=== PATIENT | male | born 1955 | race Caucasian/White ===

== ENCOUNTER 2020-04-19 15:26 | Observation (INO) | payer MEDICARE ==
[~2020-04-19 15:26] MED LIST: Iopamidol-370 76% 500 ML 1 ML ONE
--- NOTE | 2020-04-19 18:49 | CT ---
CTA OF THE ABDOMEN, PELVIS AND BILATERAL LOWER EXTREMITY WITH RUNOFF: 04/19/20 COMPARISON: Bilateral lower extremity arterial ultrasound 01/30/20. CTA chest 02/01/20. HISTORY: Bilateral lower extremity ischemic changes. Bilateral lower extremity arterial occlusion. TECHNIQUE: Multiple contiguous axial images were obtained in a CTA of the abdomen, pelvis, and bilateral lower e xtremities for runoff. 3D sagittal and coronal MIP reformats were performed. FINDINGS: There is scarring versus atelectasis in the right lung base. No other acute intrathoracic abnormality is seen. Calcifications are seen in the coronary arteries. The chest wall soft tissues are unremarka ble. There is a hypodense region in the mid portion of the right kidney measuring 4.0 cm in greatest dimen olvin. This has a mean Hounsfield unit value of 35 and is low density compared to the enhancing renal parenchyma. The liver, gallbladder, left kidney, adrenal glands, and pancreas are unremarkable. There is a small hypodensity in the posterior aspect of the spleen measuring less than 5 cm in size. This likely represents a cyst. Previously, there was a large cyst in this location which has decreased in size. The large and small bowel are normal in caliber. The appendix is normal. No abdominal or pelvic lymph adenopathy are seen. Degenerative changes are seen in the spine. Mild diffuse atherosclerotic disease is seen in the abdominal aorta. The celiac trunk, SMA, and RICHARD a re patent without significant atherosclerotic disease at the ostia. There is a single renal artery on each side without significant atherosclerotic disease. The common iliac arteries show minimal diffuse atherosclerotic disease. Severe diffuse atheroscleroti c disease is seen in the internal iliac arteries which may be occluded proximally. The external iliac arteries are patent with minimal diffuse atherosclerotic disease. The bilateral common femoral arteries show mild diffuse atherosclerotic disease with more focal dise ase immediately at their bifurcations. The right profunda femoral artery is heavily calcified and abel ears to be occluded proximally. There is occlusion of the superficial femoral artery on the right at its takeoff. Small collateral vessels are seen in the right thigh surrounding the areas of occlusion extending down to the popliteal artery. The left profunda femoral artery shows moderate to severe di ffuse atherosclerotic disease. The left superficial femoral artery is occluded proximally. Flow is es tablished in the left popliteal artery via profunda collaterals and other collaterals in the left thi gh. Moderate diffuse atherosclerotic disease is seen in both popliteal arteries. Moderate to severe diffu se atherosclerotic disease is seen in all three runoff vessels bilaterally. There appears to be flow down to the ankle in all three vessels on the right. There appears to be occlusion of all three vessels distal to the left knee with a small amount of col lateral flow provided the collaterals along the medial musculature of the lower calf. IMPRESSION: 1. Bilateral superficial femoral artery occlusion. 2. Bilateral profunda femoral artery occlusion. 3. Flow is established to both popliteal arteries which are moderately diseased via collateral v essels. 4. Severe diffuse atherosclerotic disease in the bilateral three vessel runoff. There appears to be three vessel runoff on the right and no vessels are seen as runoff on the left. 5. There is a right renal lesion which is nonspecific and could represent a cyst. However, a cys tic neoplasm is also a possibility. A CT or MRI for renal mass protocol is recommended for better demond racterization. POS: BRYON
[2020-04-19] MEDS ORDERED: Heparin 10,000 UNITS/ 10 ML VIAL ONE (19:09)
[2020-04-19] MEDS ORDERED: Heparin 25,000 units/D5W 500 ML ONE (19:09)
[2020-04-19] MEDS ORDERED: Morphine 4 MG/ML VIAL ONE (19:20)
--- NOTE | 2020-04-19 19:30 | PDOC.HHP ---
Hospitalist HPI - History of Present Illness Left leg pain History of Present Illness: PCP: Yanira Wellington The patient is a 64-year-old male with a past medical history significant for PAD, DVT, HTN, HLD, DM 2, and former crack abuser that presents to the emergency department via EMS as a transfer from [facility] for a concern for femoral arterial occlusions bilaterally. Patient was actually diagnosed with bilateral femoral occlusions 2 months ago at this facility, however, he left AGAINST MEDIC AL ADVICE before any surgical interventions could be performed. The patient takes Xarelto, however, he states he ran out approximately 3 days ago. He says that it "does not work anyways". He reports over the last several days having increased pain from his left knee down to his foot, described as "horrible", intermittent, aggravated with touch, pressure and walking. He denies any recent trauma/injury, no open wounds or lesions, no drainage. Denies any fever or chills. Denies abdominal pain, vomiting or change in bowel habits. He does say that his right lower extremity hurts at times, however, it is nothing compared to the pain in his left lower extremity. Denies any chest pain, heart palpitations, lightheadedness, shortness of breath, hemoptysis. ED Course: VITAL SIGNS FriApr 19, 2020 16:30 CHACE Gongora Morgan BP: 146/88, Pulse: 77, Resp: 16, Pain: 3, O2 sat: 100 on (Room Air), Time: 04/19/2020 16:30. VITAL SIGNS FriApr 19, 2020 16:00 CHACE Gongora Morgan BP: 145/67, Pulse: 79, Resp: 17, Pain: 3, O2 sat: 94 on (Room Air), Time: 04/19/2020 16:00. VITAL SIGNS FriApr 19, 2020 15:35 CHACE Gongora Morgan BP: 134/62, Pulse: 82, Resp: 16, Temp: 98.4 (Oral), Pain: 3, O2 sat: 97 on (Room Air), Time: 04/19/2020 15:35. Medications: heparin (porcine) in 5 % dex 12 units/kg/hr IV Fluid Infusion Ordered 18:35 04/19/2020 heparin (porcine) injection 60 units/kg IV Push Given 19:24 04/19/2020 morphine injection 4 mg IV Push Given 19:22 04/19/2020 Hospitalist ROS - Review of Systems All other systems reviewed; all pertinent +/- noted in HPI/Subj - Medication Medications: metFORMIN TABLET : Strength - 1,000 mg : ORAL Patient Dose: 500 mg Oral 2 times a day. lisinopril TABLET : Strength - 2.5 mg : ORAL Patient Dose: 2.5 mg Oral once a day. lovastatin TABLET : Strength - 10 mg : ORAL Patient Dose: ?? mg Oral once a day.pt unsure of dose. Xarelto 15 mg (42)- 20 mg (9) : Strength - tablets,dose pack : ORAL Patient Dose: Oral. 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 Was half pack per day [id number] habit) Tobacco Type: cigarettes Alcohol: reports: Occassional (Reports 6 ounces whiskey on football game , ) Drugs: reports: Other (Former crack cocaine abuse) Living Situation: Alone Occupation: Does not work Activity level: uses cane/walker - Exam General Appearance: NAD, awake alert. negative: ill appearing Eye: anicteric sclera ENT: normocephalic atraumatic, dry oral mucosa Neck: supple, symmetric Heart: RRR, no murmur, no gallops, no rubs, normal peripheral pulses Respiratory: CTAB, no wheezes, no rales, no ronchi, normal chest expansion, no tachypnea Gastrointestinal: soft, non-tender, non-distended, normal bowel sounds, no bruit, no guarding, no rigidity Extremities: no edema (Bilateral lower extremities, skin dry/flaky, poor hygiene, no open lesions or wounds, full range of motion, weak/faint posterior tibial and pedal pulses to palpation, able to Doppler pedal and posterior tibial pulses, tender to touch left foot, right foot no pain) Skin: no rashes Neurological: no focal deficits Psychiatric: normal affect, A&O x 3 Hospitalist Results - Labs Result Diagrams: 04/19/20 21:18 - Radiology Interpretation Other Status: report reviewed by me Additional Comment: CTA OF THE ABDOMEN, PELVIS AND BILATERAL LOWER EXTREMITY WITH RUNOFF: 04/19/20 IMPRESSION: 1. Bilateral superficial femoral artery occlusion. 2. Bilateral profunda femoral artery occlusion. 3. Flow is established to both popliteal arteries which are moderately diseased via collateral vessels. 4. Severe diffuse atherosclerotic disease in the bilateral three vessel runoff. There appears to be three vessel runoff on the right and no vessels are seen as runoff on the left. 5. There is a right renal lesion which is nonspecific and could represent a cyst. However, a cystic neoplasm is also a possibility. A CT or MRI for renal mass protocol is recommended for better characterization. Hospitalist H&P A/P - Problem (1) Ischemia of left lower extremity Code(s): I99.8 - OTHER DISORDER OF CIRCULATORY SYSTEM Status: Acute (2) Pain of left lower extremity due to ischemia Code(s): M79.605 - PAIN IN LEFT LEG; I99.8 - OTHER DISORDER OF CIRCULATORY SYSTEM Status: Acute (3) Right renal mass Code(s): N28.89 - OTHER SPECIFIED DISORDERS OF KIDNEY AND URETER Status: Acute (4) History of DVT (deep vein thrombosis) Code(s): Z86.718 - PERSONAL HISTORY OF OTHER VENOUS THROMBOSIS AND EMBOLISM Status: Chronic (5) DM2 (diabetes mellitus, type 2) Status: Chronic (6) Hypertension Code(s): I10 - ESSENTIAL (PRIMARY) HYPERTENSION Status: Chronic (7) Hyperlipidemia Code(s): E78.5 - HYPERLIPIDEMIA, UNSPECIFIED Status: Chronic (8) ETOH abuse Code(s): F10.10 - ALCOHOL ABUSE, UNCOMPLICATED Status: Chronic (9) Tobacco abuse Code(s): Z72.0 - TOBACCO USE Status: Chronic - Plan Plan: 64/M with PMH PAD and DVT presents for worsening LLE pain. Admit to telemetry floor, observation status. Expected length of stay less than 2 midnights. Presented vital signs stable. CTA ABD/pelvis with lower extremity runoff: 1. Bilateral superficial femoral artery occlusion. 2. Bilateral profunda femoral artery occlusion. 3. Flow was established to both popliteal arteries via collateral vessels. 4. Severe diffuse atherosclerotic disease in the bilateral 3 vessel runoff. There appears to be three-vessel runoff on the right and no vessels seen as runoff on the left. 5. Right renal lesion, cyst versus cystic neoplasm. #Ischemia of left lower extremity Acute on chronic. CV surgery, Dr. Clemens consulted by ER MD. Continue heparin drip, ischemic stroke protocol (lowest dose) Aspirin daily. N.p.o. Lower extremity positioning, dependent. Analgesia as needed. Vascular checks q4 hours. #Pain of left lower extremity due to ischemia Acute/chronic. #Right renal mass Incidental finding on CT abdomen pelvis. Recommend nonemergent CT or MRI renal mass protocol for better characterization. #History of DVT Takes Xarelto. Reports ran out of Xarelto approximately 3 days ago. #DM2 Chronic, [id number]. Takes metformin at home. We will hold metformin. Start mild ISS. Accu-Cheks every 6 hours. #Hypertension Takes lisinopril at home. We will restart home medication when reconciled by nursing. #Hyperlipidemia Takes lovastatin at home. Restart home dose lovastatin Ranexa by nursing. #EtOH abuse Reports a 6 ounce whiskey on [employer] game days. Drug screen unremarkable Start ASE protocol. #Tobacco abuse Currently 3 to 4 cigarettes/day Had half pack per day [id number] habit. Unwilling to quit. Counseled tobacco cessation. No pharmacological DVT prophylaxis. No SCDs for DVT prophylaxis. Pepcid for GI prophylaxis. Full code. Discussed case with Dr. Levine.
[2020-04-19] MEDS ORDERED: Ondansetron ODT 4 MG TAB PO PRN (20:05)
[2020-04-19] MEDS ORDERED: HYDROcodone/Acetaminophen 5/325 mg Tablet PO PRN ×2 (20:05)
[2020-04-19] MEDS ORDERED: Acetaminophen 325 MG TAB PO PRN (20:05)
[2020-04-19] MEDS ORDERED: Ondansetron PF 4 MG/2 ML Vial IVP PRN (20:05)
[2020-04-19] MEDS ORDERED: HumaLOG 300 UNITS/3 ML VIAL SC PRN (20:18)
[2020-04-19] MEDS ORDERED: Dextrose 5% in Water 1,000 ML IV PRN (20:18)
[2020-04-19] MEDS ORDERED: Dextrose 50% Abboject 50 ML SYRINGE SLOW IVP PRN (20:18)
[2020-04-19] MEDS ORDERED: Heparin 25,000 units/D5W 500 ML IVPB SCH (20:30)
[2020-04-19 21:28] LABS: Hemoglobin 14.3 g/dL (14.0-18.0); Platelet Count 328 thou/uL (130-400)
[2020-04-20] MEDS: Sodium Chloride 0.9% 1,000 ML IV SCH ×3 (00:35→17:53)
[2020-04-20] MEDS: Famotidine 20 MG TAB PO SCH ×2 (00:35→09:22)
[2020-04-20] MEDS: Famotidine/PF 20 mg/2ml Vial SLOW IVP SCH ×2 (00:36→09:47)
[2020-04-20 02:22] VITALS: BMI 23.7
[2020-04-20 03:31] LABS: #Basophils 0.1 thou/uL (0.0-0.2); #Eosinphils 0.1 thou/uL (0.0-0.7); #Lymphocytes 3.3 thou/uL (1.20-3.40); #Monocytes 0.9 thou/uL (0.11-0.59); #Neutrophils 6.8 thou/uL (1.40-6.50); %Basophils 0.9 % (0.0-1.0); %Eosinophils 1.1 % (0.0-10.0); %Lymphocytes 29.4 % (21.0-51.0); %Monocytes 7.6 % (0.0-10.0); Hemoglobin 13.2 g/dL (14.0-18.0); Mean Corpuscular HGB CONC 34.5 g/dL (32.0-36.0); Mean Platelet Volume 8.2 fL (7.4-10.4); Platelet Count 304 thou/uL (130-400); RBC Distribution Width 12.8 % (11.5-14.5); Red Blood Cell (RBC) Count 3.67 mill/uL (4.70-6.10); White Blood Cell (WBC) Count 11.1 thou/uL (4.8-10.8)
[2020-04-20 03:49] LABS: Anion Gap 15 mmol/L (10-20); BUN (Urea Nitrogen) 16 mg/dL (8.4-25.7); Calc. Creatinine Clearance 74 mL/min (70-130); Calcium 8.4 mg/dL (7.8-10.44); Carbon Dioxide 21 mmol/L (23-31); Chloride 104 mmol/L (98-107); Glucose 205 mg/dL (80-115); Potassium 3.8 mmol/L (3.5-5.1); Sodium 136 mmol/L (136-145)
[2020-04-20] MEDS ORDERED: Heparin 10,000 UNITS/ 10 ML VIAL SLOW IVP SCH (05:45)
--- NOTE | 2020-04-20 06:43 | CON ---
DATE OF CONSULTATION: 04/20/2020 HISTORY OF PRESENT ILLNESS: Mr. Guillaume is a 64-year-old gentleman, who presented to the emergency department last night with bilateral leg pain. He was in the emergency department in January of 2020 with similar complaints. At that time, he was found on ultrasound to have bilateral superficial femoral artery severe stenosis/near occlusions. I offered to take him for angiograms the following morning and he declined and left AMA. He re-presented with some more complaints yesterday. He continues to smoke. On my arrival in the room, he is upset when I turn the television off. He is upset because the pump in his room is beeping. He is also upset that he has not been allowed to have anything to eat overnight. His pain at home is really unchanged. This is a chronic issue. He walks but is limited by calf claudication. He has no rest pain. He has no ulcerations on his lower extremities. In the emergency department I ordered a CT angiogram, which shows bilateral superficial femoral artery disease and distal occlusions with reconstitution via collaterals and good runoff into the foot. I spoke with the physicians in the emergency room, told them that as this is a chronic problem that I would be happy to see him as an outpatient. They elected to put him on a heparin drip and have the hospitalist admit him. PAST MEDICAL HISTORY: 1. Diabetes mellitus. 2. Hypertension. 3. Dyslipidemia. 4. Peripheral vascular disease with claudication. PAST SURGICAL HISTORY: None. CURRENT MEDICATIONS: 1. Lisinopril 2.5 mg daily. 2. Metformin 1000 mg b.i.d. 3. Lovastatin 20 mg q.p.m. Note, the patient has a history of DVT in 2016. He was placed on Coumadin anticoagulation at that time and after two months of therapy, elected to stop his Coumadin. He had a repeat ultrasound of his leg in January 2020, which showed chronic DVT. For some reason, he was started back on Xarelto at that time, but he has not continued to take that either. SOCIAL HISTORY: He continues to smoke whenever he is able to get cigarettes. PHYSICAL EXAMINATION: Is limited due to the patient's agitation. VITALS: His temperature is 98.4, pulse is 75 and regular, and blood pressure is 133/68. LUNGS: Have distant coarse breath sounds bilaterally. HEART: Rhythm is regular. ABDOMEN: Soft. EXTREMITIES: He has palpable femoral pulses bilaterally. I cannot palpate pulses in his feet. His right foot is warm. His left foot is cooler than the right, but it is not significantly so. He has less than 2 second capillary refill bilaterally. ASSESSMENT AND PLAN: This is an unfortunate gentleman, who has chronic peripheral vascular disease. I see no indication for him to be on a heparin drip. I see no indication for him to be admitted to the hospital. He is angry that he has been kept n.p.o. all night. If he were to stay, I could potentially do angiograms on him on Friday. In my opinion, he can be discharged and this can be handled as an outpatient. Job ID: [id number]
[2020-04-20] MEDS: HumaLOG 300 UNITS/3 ML VIAL SC PRN ×2 (06:44→12:58)
[2020-04-20] MEDS ORDERED: Aspirin 325 MG TAB PO SCH (09:00)
[2020-04-20] MEDS ORDERED: Lisinopril 2.5 MG TAB PO SCH (09:00)
--- NOTE | 2020-04-20 12:43 | PDOC.DS.DS ---
Provider - Provider Date of Admission: 04/19/20 18:59 Date of Discharge: 04/20/20 Admitting Provider: Hunter Butterfield MD Primary Care Physician: ANI Rico Course - Hospital Course Hospital Course: The patient is a 64-year-old male with past medical history of peripheral vascular disease with chronic lower extremity pain, diabetes mellitus, hypertension, and dyslipidemia who presented to the hospital with complaints of worsening pain in his lower extremities. Patient was started on heparin drip and vascular surgery were consulted. After evaluation, no acute intervention was recommended. Patient was discharged and was told to follow-up outpatient. Resuscitation Status: 04/19/20 20:05 Resuscitation Status Routine Co-Sign Provider: Resuscitation Status: FULL: Full Resuscitation Discussed with: patient - Labs Lab Results: 04/20/20 03:23 04/20/20 03:23 Abnormal Lab Results - Last 48 hrs 04/19/20 21:18: Hct 41.5 L 04/19/20 21:18: APTT 69.2 H 04/20/20 03:23: Carbon Dioxide 21 L 04/20/20 03:23: WBC 11.1 H, RBC 3.67 L, Hgb 13.2 L, Hct 38.2 L, MCV 104.0 H, MCH 36.0 H, Neutrophils # 6.8 H, Monocytes # 0.9 H 04/20/20 03:23: APTT 55.4 H 04/20/20 12:07: APTT 50.9 H - Physical Exam Vitals: Vital Signs (12 hours) Temp Pulse Resp BP BP BP Pulse Ox 04/20/20 12:00 73 27 H 137/68 99 04/20/20 09:54 148/70 H 04/20/20 09:21 74 132/65 04/20/20 07:44 97.7 F 74 15 132/65 97 04/20/20 03:26 98.4 F 75 22 H 133/68 98 04/20/20 01:33 99 Weight Weight 170 lb 4.8 oz Physical Exam: The patient was seen and examined on the day of discharge. Problem - Problem (1) Ischemia of left lower extremity Code(s): I99.8 - OTHER DISORDER OF CIRCULATORY SYSTEM Status: Acute (2) DM2 (diabetes mellitus, type 2) Status: Chronic (3) Hyperlipidemia Code(s): E78.5 - HYPERLIPIDEMIA, UNSPECIFIED Status: Chronic (4) Hypertension Code(s): I10 - ESSENTIAL (PRIMARY) HYPERTENSION Status: Chronic - Time spent with Patient (mins): 31 Plan - Discharge Medications Prescriptions: Aspirin [Aspirin EC] 81 mg PO DAILY #30 tablet. Apixaban [Eliquis] 5 mg PO BID #60 tablet Home Medications: Medication Instructions Recorded Confirmed Type Apixaban [Eliquis] 5 mg PO BID #60 tablet 04/20/20 Rx Aspirin [Aspirin EC] 81 mg PO DAILY #30 tablet. 04/20/20 Rx Lisinopril [Zestril] 2.5 mg PO DAILY 04/20/20 04/20/20 History Lovastatin 20 mg PO QPM-WM 04/20/20 04/20/20 History metFORMIN HCl [Metformin HCl] 1,000 mg PO BID 04/20/20 04/20/20 History Allergies: latex Allergy (Verified 11/21/13 02:13) poison yara extract [Poison Yara Extract] Allergy (Verified 11/21/13 02:13) - Follow up Plan Referrals: Yanira Wellington PA [Primary Care Provider] - Disposition: HOME Quality - Care Measures CORE MEASURES:: N/A
[2020-04-20 12:55] LABS: SARS-CoV-2 MS2 Positive; SARS-CoV-2 N Gene Negative; SARS-CoV-2 S Gene Negative; SARS-CoV-2 by NAA Not Detected (NotDetected); SARS-CoV-2 orf1ab Negative
[2020-04-20 16:58] VITALS: BP 130/67; TEMP 98.5
[2020-04-20] MEDS ORDERED: Simvastatin 10 MG TAB PO SCH (21:00)
--- NOTE | 2020-04-22 11:25 | EKG ---
Test Reason : Blood Pressure : / mmHG Vent. Rate : 083 BPM Atrial Rate : 083 BPM P-R Int : 168 ms QRS Dur : 088 ms QT Int : 362 ms P-R-T Axes : 065 069 059 degrees QTc Int : 425 ms Sinus rhythm with occasional Premature ventricular complexes Otherwise normal ECG Confirmed by ASHER PALUMBO ([id number]), mapping editor ISAIAH QUICK ([id number]) on 04/22/2020 11:25:06 AM Referred By: Confirmed By:ASHER PALUMBO
== END 2020-04-20 17:52 | disposition home or self-care (01) ==
LOC: ERS 15:26 → 2NO 18:59
PROVIDERS: ADMIT Internal Medicine; ATTEND Internal Medicine
DX: E11.51 Type 2 diabetes mellitus with diabetic peripheral angiopathy without gangrene (principal); I70.213 Atherosclerosis of native arteries of extremities with intermittent claudication, bilateral legs; N28.89 Other specified disorders of kidney and ureter; I10 Essential (primary) hypertension; E78.5 Hyperlipidemia, unspecified; F10.10 Alcohol abuse, uncomplicated; F17.210 Nicotine dependence, cigarettes, uncomplicated; F14.11 Cocaine abuse, in remission; F32.9 Major depressive disorder, single episode, unspecified; Z86.718 Personal history of other venous thrombosis and embolism; Z86.73 Personal history of transient ischemic attack (TIA), and cerebral infarction without residual deficits; Z79.01 Long term (current) use of anticoagulants; Z79.84 Long term (current) use of oral hypoglycemic drugs; Z79.899 Other long term (current) drug therapy; Z88.8 Allergy status to other drugs, medicaments and biological substances; Z91.040 Latex allergy status; Z20.828 Contact with and (suspected) exposure to other viral communicable diseases
CPT/HCPCS: 75635; 80048; 82962 ×2; 85014; 85018; 85025; 85049; 85730 ×3; 93005; 96365; 96366; 96375; 97139; 99285; U0003; 36415; 36416; 87635; G0378; J1644; J2270; Q9967; S0028

== ENCOUNTER 2020-07-25 20:12 | Inpatient (IN) | payer MEDICARE ==
[2020-07-25 20:57] LABS: #Basophils 0.1 thou/uL (0.0-0.2); #Eosinphils 0.1 thou/uL (0.0-0.7); #Lymphocytes 2.5 thou/uL (1.20-3.40); #Monocytes 0.9 thou/uL (0.11-0.59); #Neutrophils 6.6 thou/uL (1.40-6.50); %Basophils 0.7 % (0.0-1.0); %Eosinophils 0.9 % (0.0-10.0); %Lymphocytes 24.6 % (21.0-51.0); %Monocytes 8.8 % (0.0-10.0); %Neutrophils 65.1 % (42.0-75.0); Hemoglobin 14.7 g/dL (14.0-18.0); Mean Corpuscular HGB CONC 35.4 g/dL (32.0-36.0); Mean Corpuscular Hemoglobin 35.6 pg (27.0-31.0); Mean Platelet Volume 8.3 fL (7.4-10.4); Platelet Count 388 thou/uL (130-400); RBC Distribution Width 12.1 % (11.5-14.5); Red Blood Cell (RBC) Count 4.13 mill/uL (4.70-6.10); White Blood Cell (WBC) Count 10.1 thou/uL (4.8-10.8)
[2020-07-25] MEDS ORDERED: Cefepime 2 GM VIAL ONE (21:06)
[2020-07-25 21:22] LABS: ALT (SGPT) 10 U/L (8-55); AST (SGOT) 10 U/L (5-34); Albumin 3.8 g/dL (3.4-4.8); Alcohol Less than 10 mg/dL (Less than 10); Alkaline Phosphatase 101 U/L (40-110); Anion Gap 22 mmol/L (10-20); BUN (Urea Nitrogen) 23 mg/dL (8.4-25.7); Bilirubin, Total 0.5 mg/dL (0.2-1.2); Calc. Creatinine Clearance 0 mL/min (70-130); Calcium 9.3 mg/dL (7.8-10.44); Carbon Dioxide 22 mmol/L (23-31); Chloride 98 mmol/L (98-107); Globulin 4.4 g/dL (2.4-3.5); Glucose 369 mg/dL (80-115); Potassium 4.5 mmol/L (3.5-5.1); Protein, Total 8.2 g/dL (5.8-8.1); Sodium 137 mmol/L (136-145)
[2020-07-25] MEDS ORDERED: Vancomycin 1.5 GRAM/300 ML BAG 1.5 GM in Premix Bag 1 BAG IVPB SCH (21:30)
[2020-07-25] MEDS ORDERED: Morphine 4 MG/ML VIAL ONE (22:48)
[2020-07-25] MEDS ORDERED: Lactated Ringer's 1,000 ML IV SCH (23:45)
[2020-07-26 00:04] LABS: Lactic Acid 2.5 mmol/L (0.5-2.2)
[2020-07-26 00:18] VITALS: BMI 23.6
[2020-07-26] MEDS ORDERED: Ondansetron PF 4 MG/2 ML Vial IVP PRN (05:18)
[2020-07-26] MEDS ORDERED: hydrALAZINE 20 MG/ML VIAL SLOW IVP PRN (05:21)
[2020-07-26] MEDS ORDERED: Lactated Ringer's 1,000 ML IV SCH (05:27)
[2020-07-26 06:12] LABS: #Basophils 0.1 thou/uL (0.0-0.2); #Eosinphils 0.2 thou/uL (0.0-0.7); #Lymphocytes 2.8 thou/uL (1.20-3.40); #Monocytes 0.9 thou/uL (0.11-0.59); #Neutrophils 5.9 thou/uL (1.40-6.50); %Basophils 0.5 % (0.0-1.0); %Eosinophils 2.1 % (0.0-10.0); %Lymphocytes 28.3 % (21.0-51.0); %Monocytes 8.7 % (0.0-10.0); %Neutrophils 60.3 % (42.0-75.0); Hemoglobin 12.8 g/dL (14.0-18.0); Mean Corpuscular HGB CONC 33.3 g/dL (32.0-36.0); Mean Corpuscular Hemoglobin 33.7 pg (27.0-31.0); Mean Platelet Volume 8.3 fL (7.4-10.4); Platelet Count 360 thou/uL (130-400); RBC Distribution Width 11.8 % (11.5-14.5); Red Blood Cell (RBC) Count 3.79 mill/uL (4.70-6.10); White Blood Cell (WBC) Count 9.8 thou/uL (4.8-10.8)
[2020-07-26 06:32] LABS: Anion Gap 14 mmol/L (10-20); BUN (Urea Nitrogen) 22 mg/dL (8.4-25.7); Calc. Creatinine Clearance 59 mL/min (70-130); Calcium 8.7 mg/dL (7.8-10.44); Carbon Dioxide 26 mmol/L (23-31); Chloride 104 mmol/L (98-107); Glucose 314 mg/dL (80-115); Potassium 4.7 mmol/L (3.5-5.1); Sodium 139 mmol/L (136-145)
[2020-07-26 06:47] LABS: SARS-CoV-2 PCR by NAA Not Detected (NotDetected)
[2020-07-26] MEDS ORDERED: FLU VACC QS2020-21(6MOS UP)/PF 60 MCG/0.5 ML SYRINGE IM ONE (09:00)
[2020-07-26] MEDS: Cefepime 1 GM in Sodium Chloride 0.9% 100 ML IVPB SCH ×2 (09:38→20:00)
[2020-07-26] MEDS: Multivitamins, Adult 10 ML, Folic Acid 1 MG, Thiamine HCl 100 MG in Dextrose 5 %-0.45 %... IV SCH (11:21)
[2020-07-26] MEDS ORDERED: Dextrose 5% in Water 1,000 ML IV PRN (18:47)
[2020-07-26] MEDS ORDERED: HumaLOG 300 UNITS/3 ML VIAL SC PRN (18:47)
[2020-07-26] MEDS ORDERED: Dextrose 50% Abboject 50 ML SYRINGE SLOW IVP PRN (18:47)
[2020-07-26] MEDS ORDERED: Vancomycin 1.5 GRAM/300 ML BAG 1.5 GM in Premix Bag 1 BAG IVPB SCH (22:00)
[2020-07-27] MEDS: Sodium Chloride 0.9% 1,000 ML IV SCH ×2 (00:05→16:57)
[2020-07-27] MEDS: HumaLOG 300 UNITS/3 ML VIAL SC PRN ×2 (05:15→16:54)
[2020-07-27 05:41] LABS: #Basophils 0.1 thou/uL (0.0-0.2); #Eosinphils 0.2 thou/uL (0.0-0.7); #Lymphocytes 2.2 thou/uL (1.20-3.40); #Monocytes 0.8 thou/uL (0.11-0.59); %Basophils 0.6 % (0.0-1.0); %Eosinophils 2.4 % (0.0-10.0); %Lymphocytes 21.4 % (21.0-51.0); %Monocytes 7.8 % (0.0-10.0); %Neutrophils 67.8 % (42.0-75.0); Hemoglobin 12.6 g/dL (14.0-18.0); Mean Corpuscular HGB CONC 33.5 g/dL (32.0-36.0); Mean Corpuscular Hemoglobin 33.9 pg (27.0-31.0); Mean Platelet Volume 8.4 fL (7.4-10.4); Platelet Count 320 thou/uL (130-400); RBC Distribution Width 11.8 % (11.5-14.5); Red Blood Cell (RBC) Count 3.71 mill/uL (4.70-6.10); White Blood Cell (WBC) Count 10.3 thou/uL (4.8-10.8)
[2020-07-27 05:47] LABS: Anion Gap 12 mmol/L (10-20); BUN (Urea Nitrogen) 15 mg/dL (8.4-25.7); Calc. Creatinine Clearance 77 mL/min (70-130); Calcium 8.4 mg/dL (7.8-10.44); Carbon Dioxide 23 mmol/L (23-31); Chloride 104 mmol/L (98-107); Glucose 202 mg/dL (80-115); Potassium 4.4 mmol/L (3.5-5.1); Sodium 135 mmol/L (136-145)
[2020-07-27] MEDS: Acetaminophen 325 MG TAB PO PRN ×2 (05:50→17:37)
[2020-07-27] MEDS: Multivitamins, Adult 10 ML, Folic Acid 1 MG, Thiamine HCl 100 MG in Dextrose 5 %-0.45 %... IV SCH (08:54)
[2020-07-27] MEDS ORDERED: Lidocaine 1% (PF) 30 ML VIAL ONE (10:02)
[2020-07-27] MEDS ORDERED: Heparin 10,000 UNITS/ 10 ML VIAL ONE (10:02)
[2020-07-27] MEDS ORDERED: Midazolam HCl 2 mg/2 ml Vial ONE (10:39)
[2020-07-27] MEDS ORDERED: Fentanyl 100 MCG/2 ML VIAL ONE (10:39)
[2020-07-27] MEDS ORDERED: Iopamidol 370 76% 50 ML VIAL FS ONE (11:55)
[2020-07-28 05:45] LABS: #Eosinphils 0.1 thou/uL (0.0-0.7); #Lymphocytes 1.7 thou/uL (1.20-3.40); #Monocytes 0.8 thou/uL (0.11-0.59); #Neutrophils 7.8 thou/uL (1.40-6.50); %Basophils 0.5 % (0.0-1.0); %Eosinophils 1.3 % (0.0-10.0); %Lymphocytes 16.4 % (21.0-51.0); %Monocytes 7.6 % (0.0-10.0); %Neutrophils 74.3 % (42.0-75.0); Hemoglobin 12.6 g/dL (14.0-18.0); Mean Corpuscular HGB CONC 34.5 g/dL (32.0-36.0); Mean Corpuscular Hemoglobin 34.6 pg (27.0-31.0); Platelet Count 327 thou/uL (130-400); RBC Distribution Width 11.8 % (11.5-14.5); Red Blood Cell (RBC) Count 3.65 mill/uL (4.70-6.10); White Blood Cell (WBC) Count 10.5 thou/uL (4.8-10.8)
[2020-07-28] MEDS: Sodium Chloride 0.9% 1,000 ML IV SCH (06:01)
[2020-07-28 06:07] LABS: Anion Gap 14 mmol/L (10-20); BUN (Urea Nitrogen) 12 mg/dL (8.4-25.7); Calc. Creatinine Clearance 77 mL/min (70-130); Calcium 8.5 mg/dL (7.8-10.44); Carbon Dioxide 23 mmol/L (23-31); Chloride 103 mmol/L (98-107); Glucose 265 mg/dL (80-115); Potassium 4.4 mmol/L (3.5-5.1); Sodium 136 mmol/L (136-145)
[2020-07-28] MEDS ORDERED: Heparin 5,000 UNITS/ML VIAL ONE (06:37)
[2020-07-28] MEDS ORDERED: Protamine Sulfate 50 MG/5 ML VIAL ONE (06:37)
[2020-07-28] MEDS ORDERED: Fentanyl 100 MCG/2 ML VIAL ONE ×3 (06:43→10:28)
[2020-07-28] MEDS ORDERED: Midazolam HCl 2 mg/2 ml Vial ONE (06:43)
[2020-07-28] MEDS ORDERED: Dexamethasone 20 MG/5 ML VIAL ONE (09:06)
[2020-07-28] MEDS ORDERED: Ondansetron PF 4 MG/2 ML Vial ONE (09:06)
[2020-07-28] MEDS ORDERED: PROPOFOL 200 MG/20 ML VIAL ONE (09:06)
[2020-07-28] MEDS ORDERED: Calcium Chloride 1 GM/10 ML Abboject SYRINGE ONE (09:06)
[2020-07-28] MEDS ORDERED: PHENYLEPHRINE-NS 100 MCG/ML 10 ML SYRINGE ONE (09:06)
[2020-07-28] MEDS ORDERED: ePHEDrine 50 MG/ML VIAL ONE (09:06)
[2020-07-28] MEDS ORDERED: Labetalol HCl 100 MG/20 ML VIAL ONE (09:43)
[2020-07-28] MEDS ORDERED: Labetalol HCl 100 MG/20 ML VIAL SLOW IVP SCH (09:45)
[2020-07-28] MEDS ORDERED: traMADol HCl 50 MG TAB PO PRN (12:49)
[2020-07-28] MEDS ORDERED: Fentanyl 100 MCG/2 ML VIAL SLOW IVP PRN ×2 (12:49)
[2020-07-28] MEDS: Multivitamins, Adult 10 ML, Folic Acid 1 MG, Thiamine HCl 100 MG in Dextrose 5 %-0.45 %... IV SCH (14:36)
[2020-07-28] MEDS: traMADol HCl 50 MG TAB PO PRN (15:05)
[2020-07-28 15:41] LABS: Bacteria/HPF None Seen HPF (None Seen); Bilirubin Negative (Negative); Blood, Urine Trace (Negative); Clarity Clear (Clear); Glucose, Urine (Dipstick) Greater than 1000 mg/dL (Negative); Ketone, Urine Trace mg/dL (Negative); Leukocyte Negative Leu/uL (Negative); Nitrite Negative (Negative); Protein, Urine (Dipstick) Negative (Neg-Trace); RBC/HPF 0-3 HPF (0-3); Specific Gravity, Urine 1.017 (1.002-1.036); Squamous Epithelial None Seen HPF (0-3); Urobilinogen Normal mg/dL (Less than 2); pH, Urine 5.5 (5.0-9.0)
[2020-07-28 15:58] LABS: Sperm/HPF 3+ HPF (None Seen)
[2020-07-28 16:00] LABS: Urine Culture Reflex Yes Yes
[2020-07-28] MEDS: HumaLOG 300 UNITS/3 ML VIAL SC PRN ×2 (16:23→20:51)
[2020-07-28] MEDS: metFORMIN 500 MG TAB PO SCH (17:52)
[2020-07-28] MEDS ORDERED: HumaLOG 300 UNITS/3 ML VIAL SC SCH (19:00)
[2020-07-28] MEDS: Simvastatin 10 MG TAB PO SCH (20:35)
[2020-07-29] MEDS: HumaLOG 300 UNITS/3 ML VIAL SC PRN ×2 (05:46→12:19)
[2020-07-29 05:47] LABS: #Lymphocytes 1.8 thou/uL (1.20-3.40); #Monocytes 0.9 thou/uL (0.11-0.59); #Neutrophils 9.5 thou/uL (1.40-6.50); %Basophils 0.2 % (0.0-1.0); %Eosinophils 0.2 % (0.0-10.0); %Lymphocytes 14.5 % (21.0-51.0); %Monocytes 7.2 % (0.0-10.0); %Neutrophils 77.9 % (42.0-75.0); Mean Corpuscular HGB CONC 34.1 g/dL (32.0-36.0); Mean Corpuscular Hemoglobin 34.2 pg (27.0-31.0); Mean Platelet Volume 8.2 fL (7.4-10.4); Platelet Count 310 thou/uL (130-400); RBC Distribution Width 11.9 % (11.5-14.5); Red Blood Cell (RBC) Count 3.51 mill/uL (4.70-6.10); White Blood Cell (WBC) Count 12.2 thou/uL (4.8-10.8)
[2020-07-29 06:11] LABS: Anion Gap 16 mmol/L (10-20); BUN (Urea Nitrogen) 17 mg/dL (8.4-25.7); Calc. Creatinine Clearance 77 mL/min (70-130); Calcium 8.7 mg/dL (7.8-10.44); Carbon Dioxide 21 mmol/L (23-31); Chloride 102 mmol/L (98-107); Glucose 261 mg/dL (80-115); Sodium 135 mmol/L (136-145)
[2020-07-29] MEDS: Sodium Chloride 0.9% 1,000 ML IV SCH ×2 (08:09→08:10)
[2020-07-29] MEDS: Aspirin 325 mg Enteric Coated Tablet PO SCH (08:10)
[2020-07-29] MEDS: traMADol HCl 50 MG TAB PO PRN (08:10)
[2020-07-29] MEDS: metFORMIN 500 MG TAB PO SCH ×2 (08:11→16:54)
[2020-07-29] MEDS: Acetaminophen 325 MG TAB PO PRN (08:11)
[2020-07-29] MEDS: Multivitamins, Adult 10 ML, Folic Acid 1 MG, Thiamine HCl 100 MG in Dextrose 5 %-0.45 %... IV SCH (10:28)
[2020-07-29] MEDS: Senokot S 8.6-50 MG TAB PO SCH ×2 (20:15→21:06)
[2020-07-29] MEDS: Sulfameth/Trimethoprim DS 800-160mg TAB PO SCH (20:15)
[2020-07-29] MEDS: Insulin Glargine 10 UNITS in Pre-Filled Syringe 1 EACH SC SCH (20:16)
[2020-07-29] MEDS: Simvastatin 10 MG TAB PO SCH (20:43)
[2020-07-30] MEDS: Acetaminophen 325 MG TAB PO PRN ×2 (05:53→20:41)
[2020-07-30] MEDS: HumaLOG 300 UNITS/3 ML VIAL SC PRN (05:54)
[2020-07-30] MEDS: traMADol HCl 50 MG TAB PO PRN ×2 (07:06→16:44)
[2020-07-30] MEDS: Multivit, Therapeutic 1 TAB PO SCH (08:17)
[2020-07-30] MEDS: Senokot S 8.6-50 MG TAB PO SCH ×3 (08:18→20:40)
[2020-07-30] MEDS: metFORMIN 500 MG TAB PO SCH ×2 (08:18→16:44)
[2020-07-30] MEDS: Thiamine 100 MG TAB PO SCH (08:18)
[2020-07-30] MEDS: Sulfameth/Trimethoprim DS 800-160mg TAB PO SCH ×2 (08:18→20:41)
[2020-07-30] MEDS: Aspirin 325 mg Enteric Coated Tablet PO SCH (08:18)
[2020-07-30] MEDS: Folic Acid 1 MG TAB PO SCH (08:18)
[2020-07-30] MEDS ORDERED: HumaLOG 300 UNITS/3 ML VIAL SC PRN (16:04)
[2020-07-30] MEDS: Simvastatin 10 MG TAB PO SCH (20:41)
[2020-07-30] MEDS: Amlodipine 5 MG TAB PO SCH (20:41)
[2020-07-30] MEDS: Insulin Glargine 10 UNITS in Pre-Filled Syringe 1 EACH SC SCH (20:41)
[2020-07-31] MEDS: traMADol HCl 50 MG TAB PO PRN ×2 (04:04→20:51)
[2020-07-31] MEDS: metFORMIN 500 MG TAB PO SCH ×2 (08:19→16:14)
[2020-07-31] MEDS: Aspirin 325 mg Enteric Coated Tablet PO SCH (08:19)
[2020-07-31] MEDS: Multivit, Therapeutic 1 TAB PO SCH (08:19)
[2020-07-31] MEDS: Sulfameth/Trimethoprim DS 800-160mg TAB PO SCH ×2 (08:19→20:50)
[2020-07-31] MEDS: Thiamine 100 MG TAB PO SCH (08:20)
[2020-07-31] MEDS: Senokot S 8.6-50 MG TAB PO SCH ×2 (08:20→23:03)
[2020-07-31] MEDS: Folic Acid 1 MG TAB PO SCH (08:20)
[2020-07-31] MEDS: Amlodipine 5 MG TAB PO SCH (20:50)
[2020-07-31] MEDS: Simvastatin 10 MG TAB PO SCH (20:51)
[2020-07-31] MEDS: Insulin Glargine 10 UNITS in Pre-Filled Syringe 1 EACH SC SCH (23:03)
[2020-08-01] MEDS: Thiamine 100 MG TAB PO SCH (08:09)
[2020-08-01] MEDS: Aspirin 325 mg Enteric Coated Tablet PO SCH (08:09)
[2020-08-01] MEDS: Senokot S 8.6-50 MG TAB PO SCH ×2 (08:09→21:12)
[2020-08-01] MEDS: Multivit, Therapeutic 1 TAB PO SCH (08:09)
[2020-08-01] MEDS: Folic Acid 1 MG TAB PO SCH (08:09)
[2020-08-01] MEDS: Sulfameth/Trimethoprim DS 800-160mg TAB PO SCH ×2 (08:09→21:11)
[2020-08-01] MEDS: metFORMIN 500 MG TAB PO SCH ×2 (08:09→17:25)
[2020-08-01] MEDS: traMADol HCl 50 MG TAB PO PRN (17:29)
[2020-08-01] MEDS: Amlodipine 5 MG TAB PO SCH (21:11)
[2020-08-01] MEDS: Simvastatin 10 MG TAB PO SCH (21:11)
[2020-08-01] MEDS: Insulin Glargine 10 UNITS in Pre-Filled Syringe 1 EACH SC SCH (21:12)
[2020-08-02] MEDS: Folic Acid 1 MG TAB PO SCH (08:01)
[2020-08-02] MEDS: Aspirin 325 mg Enteric Coated Tablet PO SCH (08:01)
[2020-08-02] MEDS: Senokot S 8.6-50 MG TAB PO SCH ×2 (08:01→20:25)
[2020-08-02] MEDS: Multivit, Therapeutic 1 TAB PO SCH (08:01)
[2020-08-02] MEDS: Sulfameth/Trimethoprim DS 800-160mg TAB PO SCH ×2 (08:01→20:25)
[2020-08-02] MEDS: Thiamine 100 MG TAB PO SCH (08:01)
[2020-08-02] MEDS: metFORMIN 500 MG TAB PO SCH ×2 (08:01→17:36)
[2020-08-02] MEDS: traMADol HCl 50 MG TAB PO PRN (16:26)
[2020-08-02] MEDS: Amlodipine 5 MG TAB PO SCH (20:25)
[2020-08-02] MEDS ORDERED: Lantus 1000 UNITS/10 ML VIAL SC SCH (21:00)
[2020-08-02] MEDS: Acetaminophen 325 MG TAB PO PRN (22:25)
[2020-08-02] MEDS: Simvastatin 10 MG TAB PO SCH (22:26)
[2020-08-03] MEDS: Acetaminophen 325 MG TAB PO PRN (03:52)
[2020-08-03 05:35] LABS: #Basophils 0.1 thou/uL (0.0-0.2); #Eosinphils 0.4 thou/uL (0.0-0.7); #Lymphocytes 1.9 thou/uL (1.20-3.40); #Monocytes 0.9 thou/uL (0.11-0.59); #Neutrophils 6.2 thou/uL (1.40-6.50); %Basophils 0.9 % (0.0-1.0); %Eosinophils 4.6 % (0.0-10.0); %Lymphocytes 19.9 % (21.0-51.0); %Monocytes 9.7 % (0.0-10.0); %Neutrophils 64.9 % (42.0-75.0); Hemoglobin 13.4 g/dL (14.0-18.0); Mean Corpuscular Hemoglobin 32.3 pg (27.0-31.0); Mean Platelet Volume 8.2 fL (7.4-10.4); Platelet Count 358 thou/uL (130-400); RBC Distribution Width 12.2 % (11.5-14.5); Red Blood Cell (RBC) Count 4.15 mill/uL (4.70-6.10); White Blood Cell (WBC) Count 9.5 thou/uL (4.8-10.8)
[2020-08-03 06:03] LABS: Anion Gap 15 mmol/L (10-20); BUN (Urea Nitrogen) 18 mg/dL (8.4-25.7); Calc. Creatinine Clearance 65 mL/min (70-130); Calcium 9.5 mg/dL (7.8-10.44); Carbon Dioxide 23 mmol/L (23-31); Chloride 101 mmol/L (98-107); Glucose 128 mg/dL (80-115); Potassium 4.3 mmol/L (3.5-5.1); Sodium 135 mmol/L (136-145)
[2020-08-03] MEDS: traMADol HCl 50 MG TAB PO PRN (08:40)
[2020-08-03] MEDS: metFORMIN 500 MG TAB PO SCH (08:40)
[2020-08-03] MEDS: Aspirin 325 mg Enteric Coated Tablet PO SCH (09:03)
[2020-08-03] MEDS: Sulfameth/Trimethoprim DS 800-160mg TAB PO SCH (09:03)
[2020-08-03] MEDS: Senokot S 8.6-50 MG TAB PO SCH (09:03)
[2020-08-03] MEDS: Folic Acid 1 MG TAB PO SCH (09:03)
[2020-08-03] MEDS: Thiamine 100 MG TAB PO SCH (09:03)
[2020-08-03] MEDS: Multivit, Therapeutic 1 TAB PO SCH (09:03)
[2020-08-03 11:17] VITALS: BP 144/76; TEMP 97.7
== END 2020-08-03 16:02 | disposition home or self-care (01) | DRG 854 ==
LOC: ERS 20:12 → ONC 22:40 → CCU 07-28 08:17 → SJJU 07-28 12:27
PROVIDERS: ADMIT Internal Medicine; ATTEND Hospitalist
PROC: B41D1ZZ Fluoroscopy of Aorta and Bilateral Lower Extremity Arteries using Low Osmolar Contrast (ICD-10-PCS; 2020-07-27)
PROC: 061N0JY Bypass Left Femoral Vein to Lower Vein with Synthetic Substitute, Open Approach (ICD-10-PCS; principal; 2020-07-28)
DX: A41.9 Sepsis, unspecified organism (principal); E11.52 Type 2 diabetes mellitus with diabetic peripheral angiopathy with gangrene; I70.262 Atherosclerosis of native arteries of extremities with gangrene, left leg; N17.9 Acute kidney failure, unspecified; R65.20 Severe sepsis without septic shock; Z20.822 Contact with and (suspected) exposure to COVID-19; F10.10 Alcohol abuse, uncomplicated; F17.210 Nicotine dependence, cigarettes, uncomplicated; E11.65 Type 2 diabetes mellitus with hyperglycemia; E11.22 Type 2 diabetes mellitus with diabetic chronic kidney disease; N18.2 Chronic kidney disease, stage 2 (mild); I12.9 Hypertensive chronic kidney disease with stage 1 through stage 4 chronic kidney disease, or unspecified chronic kidney disease; E78.5 Hyperlipidemia, unspecified; Z28.21 Immunization not carried out because of patient refusal; Z91.19 Patient's noncompliance with other medical treatment and regimen; Z86.718 Personal history of other venous thrombosis and embolism; Z86.73 Personal history of transient ischemic attack (TIA), and cerebral infarction without residual deficits; Z91.040 Latex allergy status; Z91.09 Other allergy status, other than to drugs and biological substances; Z79.899 Other long term (current) drug therapy; Z79.01 Long term (current) use of anticoagulants; Z79.84 Long term (current) use of oral hypoglycemic drugs; Z83.3 Family history of diabetes mellitus
CPT/HCPCS: 36247; 36415; 36416; 75630; 75710; 76942; 80048; 80053; 80307; 81001; 82550; 83605; 85025; 86140; 87040; 87086; 87635; 93923; 96365; 96366; 96375; 99152; 99153; J0690; J0692; J1100; J1642; J1644; J1815; J2001; J2250; J2270; J2405; J2704; J2720; J3010; J3370; J3411; J3490; J7042; Q9967; U0003; U0005

== ENCOUNTER 2020-09-04 17:43 | Emergency (ER) | payer MEDICARE | END 2020-09-04 19:15 | disposition home or self-care (01) | LOC: ERS 17:43 | DX: M79.652 Pain in left thigh (principal); I10 Essential (primary) hypertension; E11.9 Type 2 diabetes mellitus without complications; F17.210 Nicotine dependence, cigarettes, uncomplicated; Z86.73 Personal history of transient ischemic attack (TIA), and cerebral infarction without residual deficits; Z86.718 Personal history of other venous thrombosis and embolism; Z79.899 Other long term (current) drug therapy; Z79.84 Long term (current) use of oral hypoglycemic drugs | CPT/HCPCS: 99281 ==

== ENCOUNTER 2020-10-26 11:16 | Inpatient (IN) | payer MEDICARE ==
[2020-10-26 12:11] LABS: #Lymphocytes 1.1 thou/uL (1.20-3.40); #Monocytes 0.7 thou/uL (0.11-0.59); #Neutrophils 6.4 thou/uL (1.40-6.50); %Basophils 0.2 % (0.0-1.0); %Eosinophils 0.5 % (0.0-10.0); %Lymphocytes 12.8 % (21.0-51.0); %Monocytes 8.7 % (0.0-10.0); %Neutrophils 77.8 % (42.0-75.0); Hemoglobin 12.9 g/dL (14.0-18.0); Mean Corpuscular HGB CONC 33.3 g/dL (32.0-36.0); Mean Platelet Volume 7.9 fL (7.4-10.4); Platelet Count 277 thou/uL (130-400); RBC Distribution Width 12.9 % (11.5-14.5); Red Blood Cell (RBC) Count 4.02 mill/uL (4.70-6.10); White Blood Cell (WBC) Count 8.2 thou/uL (4.8-10.8)
[2020-10-26] MEDS ORDERED: Piperacillin/Tazobactam 3.375 GM VIAL ONE (12:12)
[2020-10-26] MEDS ORDERED: Morphine 4 MG/ML VIAL ONE (12:12)
[2020-10-26 12:27] LABS: INR-International Normal Ratio 1.6; Prothrombin Time 19.8 sec (12.0-14.7)
[2020-10-26 12:28] LABS: PTT 38.8 sec (22.9-36.1)
[2020-10-26 12:35] LABS: ALT (SGPT) 13 U/L (8-55); AST (SGOT) 19 U/L (5-34); Albumin 3.6 g/dL (3.4-4.8); Alkaline Phosphatase 109 U/L (40-110); Anion Gap 15 mmol/L (10-20); BUN (Urea Nitrogen) 14 mg/dL (8.4-25.7); Bilirubin, Total 0.8 mg/dL (0.2-1.2); Calc. Creatinine Clearance 0 mL/min (70-130); Calcium 8.8 mg/dL (7.8-10.44); Carbon Dioxide 23 mmol/L (23-31); Chloride 99 mmol/L (98-107); Globulin 3.9 g/dL (2.4-3.5); Glucose 164 mg/dL (80-115); Lipase 12 U/L (8-78); Potassium 4.1 mmol/L (3.5-5.1); Protein, Total 7.5 g/dL (5.8-8.1); Sodium 133 mmol/L (136-145)
[2020-10-26] MEDS ORDERED: Midazolam HCl 2 mg/2 ml Vial ONE (14:21)
[2020-10-26 14:46] LABS: Bilirubin Negative (Negative); Blood, Urine Trace (Negative); Glucose, Urine (Dipstick) 100 mg/dL (Negative); Ketone, Urine Trace mg/dL (Negative); Leukocyte Negative (Negative); Nitrite Negative (Negative); Protein, Urine (Dipstick) 100 mg/dL (Neg-Trace); Urobilinogen 0.2 mg/dL (Less than 2)
[2020-10-26 14:48] LABS: Squamous Epithelial None Seen HPF (0-3); WBC/HPF 0-3 HPF (0-3)
[2020-10-26 14:50] LABS: Clarity Clear (Clear); Specific Gravity, Urine 1.021 (1.005-1.030)
[2020-10-26 14:53] LABS: Bacteria/HPF Rare-Few HPF (None Seen)
[2020-10-26] MEDS ORDERED: Dextrose 50% Abboject 50 ML SYRINGE SLOW IVP PRN (16:58)
[2020-10-26] MEDS ORDERED: Dextrose 5% in Water 1,000 ML IV PRN (16:58)
[2020-10-26] MEDS ORDERED: HYDROcodone/Acetaminophen 5/325 mg Tablet PO PRN (17:00)
[2020-10-26] MEDS ORDERED: Ondansetron PF 4 MG/2 ML Vial IVP PRN (17:01)
[2020-10-26] MEDS ORDERED: Calcium Carbonate 500 MG ChewTAB PO PRN (17:01)
[2020-10-26] MEDS ORDERED: Ondansetron ODT 4 MG TAB PO PRN (17:01)
[2020-10-26] MEDS ORDERED: Morphine 2 MG/ML VIAL SLOW IVP PRN (17:04)
[2020-10-26] MEDS ORDERED: Aspirin 325 MG TAB PO SCH (17:15)
[2020-10-26] MEDS ORDERED: Piperacillin/Tazobactam 3.375 GM in Sodium Chloride 0.9% 100 ML IVPB SCH (18:15)
[2020-10-26] MEDS: Sodium Chloride 0.9% 1,000 ML IV SCH (18:24)
[2020-10-26] MEDS: Senokot S 8.6-50 MG TAB PO SCH (20:17)
[2020-10-26] MEDS: Heparin 5,000 UNITS/ML VIAL SC SCH (20:17)
[2020-10-26] MEDS: Atorvastatin Calcium 40 MG TAB PO SCH (20:18)
[2020-10-26] MEDS: Insulin Regular 300 UNITS/3 ML VIAL SC PRN (20:58)
[2020-10-26] MEDS ORDERED: Famotidine 20 MG TAB PO SCH (21:00)
[2020-10-27] MEDS: Piperacillin/Tazobactam 3.375 GM in Sodium Chloride 0.9% 100 ML IVPB SCH ×5 (00:12→23:52)
[2020-10-27 05:38] LABS: #Eosinphils 0.1 thou/uL (0.0-0.7); #Lymphocytes 1.7 thou/uL (1.20-3.40); #Monocytes 1.2 thou/uL (0.11-0.59); #Neutrophils 5.7 thou/uL (1.40-6.50); %Basophils 0.5 % (0.0-1.0); %Eosinophils 1.4 % (0.0-10.0); %Lymphocytes 19.1 % (21.0-51.0); %Monocytes 13.5 % (0.0-10.0); %Neutrophils 65.5 % (42.0-75.0); Hemoglobin 12.9 g/dL (14.0-18.0); Mean Corpuscular HGB CONC 35.2 g/dL (32.0-36.0); Mean Corpuscular Hemoglobin 34.2 pg (27.0-31.0); Mean Platelet Volume 8.1 fL (7.4-10.4); Platelet Count 324 thou/uL (130-400); RBC Distribution Width 12.8 % (11.5-14.5); Red Blood Cell (RBC) Count 3.79 mill/uL (4.70-6.10); White Blood Cell (WBC) Count 8.7 thou/uL (4.8-10.8)
[2020-10-27 05:47] LABS: Hemoglobin A1c 9.3 % (4.0-6.0)
[2020-10-27 05:54] LABS: Anion Gap 13 mmol/L (10-20); BUN (Urea Nitrogen) 12 mg/dL (8.4-25.7); Calc. Creatinine Clearance 52 mL/min (70-130); Calcium 8.2 mg/dL (7.8-10.44); Carbon Dioxide 22 mmol/L (23-31); Chloride 103 mmol/L (98-107); Glucose 140 mg/dL (80-115); Potassium 3.7 mmol/L (3.5-5.1); Sodium 134 mmol/L (136-145)
[2020-10-27] MEDS: Sodium Chloride 0.9% 1,000 ML IV SCH ×2 (07:32→10:39)
[2020-10-27] MEDS: Lisinopril 2.5 MG TAB PO SCH (10:41)
[2020-10-27] MEDS: Heparin 5,000 UNITS/ML VIAL SC SCH ×2 (12:14→20:13)
[2020-10-27] MEDS: Aspirin 325 MG TAB PO SCH (12:15)
[2020-10-27] MEDS: Senokot S 8.6-50 MG TAB PO SCH ×2 (12:15→19:59)
[2020-10-27 13:38] VITALS: BMI 24.4
[2020-10-27] MEDS: Vancomycin 1 GM in Premix Bag 1 BAG IVPB SCH (14:23)
[2020-10-27] MEDS: Insulin Regular 300 UNITS/3 ML VIAL SC PRN (19:12)
[2020-10-27] MEDS: Acetaminophen 325 MG TAB PO PRN (19:14)
[2020-10-27] MEDS: Famotidine 20 MG TAB PO SCH (19:59)
[2020-10-27] MEDS: Atorvastatin Calcium 40 MG TAB PO SCH (19:59)
[2020-10-27] MEDS ORDERED: Famotidine 20 MG TAB PO SCH (21:00)
[2020-10-27] MEDS: Morphine 2 MG/ML VIAL SLOW IVP PRN (22:47)
[2020-10-28] MEDS: Piperacillin/Tazobactam 3.375 GM in Sodium Chloride 0.9% 100 ML IVPB SCH ×3 (04:31→18:05)
[2020-10-28] MEDS: Sodium Chloride 0.9% 1,000 ML IV SCH ×2 (04:31→23:24)
[2020-10-28] MEDS: Morphine 2 MG/ML VIAL SLOW IVP PRN (04:31)
[2020-10-28] MEDS: Insulin Regular 300 UNITS/3 ML VIAL SC PRN (04:32)
[2020-10-28 05:50] LABS: #Basophils 0.1 thou/uL (0.0-0.2); #Eosinphils 0.2 thou/uL (0.0-0.7); #Lymphocytes 1.9 thou/uL (1.20-3.40); #Monocytes 0.9 thou/uL (0.11-0.59); #Neutrophils 4.7 thou/uL (1.40-6.50); %Eosinophils 2.3 % (0.0-10.0); %Lymphocytes 24.6 % (21.0-51.0); %Monocytes 11.6 % (0.0-10.0); %Neutrophils 60.4 % (42.0-75.0); Hemoglobin 11.9 g/dL (14.0-18.0); Mean Corpuscular HGB CONC 33.4 g/dL (32.0-36.0); Mean Corpuscular Hemoglobin 32.2 pg (27.0-31.0); Mean Corpuscular Volume 96.5 fL (78.0-98.0); Mean Platelet Volume 8.1 fL (7.4-10.4); Platelet Count 310 thou/uL (130-400); RBC Distribution Width 12.7 % (11.5-14.5); Red Blood Cell (RBC) Count 3.71 mill/uL (4.70-6.10); White Blood Cell (WBC) Count 7.8 thou/uL (4.8-10.8)
[2020-10-28 06:16] LABS: Anion Gap 12 mmol/L (10-20); BUN (Urea Nitrogen) 14 mg/dL (8.4-25.7); Calc. Creatinine Clearance 75 mL/min (70-130); Calcium 8.3 mg/dL (7.8-10.44); Carbon Dioxide 22 mmol/L (23-31); Chloride 105 mmol/L (98-107); Glucose 159 mg/dL (80-115); Potassium 3.9 mmol/L (3.5-5.1); Sodium 135 mmol/L (136-145)
[2020-10-28] MEDS: Senokot S 8.6-50 MG TAB PO SCH ×2 (08:08→20:45)
[2020-10-28] MEDS: Famotidine 20 MG TAB PO SCH ×2 (08:08→20:45)
[2020-10-28] MEDS: Lisinopril 2.5 MG TAB PO SCH (08:08)
[2020-10-28] MEDS: Aspirin 325 MG TAB PO SCH (08:08)
[2020-10-28] MEDS: Heparin 5,000 UNITS/ML VIAL SC SCH ×2 (08:10→20:47)
[2020-10-28 12:40] LABS: Vancomycin, Trough 6.1 ug/mL
[2020-10-28] MEDS: Vancomycin 1 GM in Premix Bag 1 BAG IVPB SCH ×2 (13:21→14:31)
[2020-10-28] MEDS ORDERED: Ondansetron PF 4 MG/2 ML Vial IVP PRN (14:48)
[2020-10-28] MEDS: Acetaminophen 325 MG TAB PO PRN ×2 (15:32→21:01)
[2020-10-28] MEDS: Atorvastatin Calcium 40 MG TAB PO SCH (20:45)
[2020-10-28] MEDS: Morphine 4 MG/ML VIAL SLOW IVP PRN (22:17)
[2020-10-29] MEDS: Piperacillin/Tazobactam 3.375 GM in Sodium Chloride 0.9% 100 ML IVPB SCH ×4 (00:27→17:48)
[2020-10-29] MEDS: Vancomycin 1 GM in Premix Bag 1 BAG IVPB SCH ×2 (02:09→13:59)
[2020-10-29] MEDS: Insulin Regular 300 UNITS/3 ML VIAL SC PRN (05:43)
[2020-10-29] MEDS: Morphine 4 MG/ML VIAL SLOW IVP PRN (05:44)
[2020-10-29] MEDS: Lisinopril 2.5 MG TAB PO SCH (08:36)
[2020-10-29] MEDS: Aspirin 325 MG TAB PO SCH (08:36)
[2020-10-29] MEDS: Famotidine 20 MG TAB PO SCH ×2 (08:37→20:45)
[2020-10-29] MEDS: Senokot S 8.6-50 MG TAB PO SCH ×2 (08:37→20:46)
[2020-10-29] MEDS: Acetaminophen 325 MG TAB PO PRN ×2 (08:37→20:45)
[2020-10-29] MEDS: Heparin 5,000 UNITS/ML VIAL SC SCH ×2 (08:37→20:45)
[2020-10-29] MEDS ORDERED: Morphine 2 MG/ML VIAL SLOW IVP SCH (16:00)
[2020-10-29] MEDS: Sodium Chloride 0.9% 1,000 ML IV SCH (17:18)
[2020-10-29] MEDS: Atorvastatin Calcium 40 MG TAB PO SCH (20:45)
[2020-10-29] MEDS: Morphine 2 MG/ML VIAL SLOW IVP PRN (21:43)
[2020-10-30] MEDS: Piperacillin/Tazobactam 3.375 GM in Sodium Chloride 0.9% 100 ML IVPB SCH ×5 (00:11→22:51)
[2020-10-30] MEDS: Vancomycin 1 GM in Premix Bag 1 BAG IVPB SCH ×2 (02:04→14:13)
[2020-10-30] MEDS: Sodium Chloride 0.9% 1,000 ML IV SCH ×2 (02:15→15:35)
[2020-10-30] MEDS: Acetaminophen 325 MG TAB PO PRN ×2 (02:34→16:29)
[2020-10-30] MEDS: Morphine 2 MG/ML VIAL SLOW IVP PRN ×4 (04:28→22:50)
[2020-10-30] MEDS: Lisinopril 2.5 MG TAB PO SCH (08:09)
[2020-10-30] MEDS: Aspirin 325 MG TAB PO SCH (08:09)
[2020-10-30] MEDS: Senokot S 8.6-50 MG TAB PO SCH ×2 (08:09→20:28)
[2020-10-30] MEDS: Famotidine 20 MG TAB PO SCH ×2 (08:09→20:27)
[2020-10-30] MEDS: Heparin 5,000 UNITS/ML VIAL SC SCH ×2 (08:09→20:28)
[2020-10-30 13:37] LABS: Vancomycin, Trough 17.7 ug/mL
[2020-10-30 17:07] LABS: SARS-CoV-2 PCR NAA for Saliva Not Detected (NotDetected)
[2020-10-30] MEDS: Insulin Regular 300 UNITS/3 ML VIAL SC PRN (17:47)
[2020-10-30] MEDS: Atorvastatin Calcium 40 MG TAB PO SCH (20:28)
[2020-10-31] MEDS: Vancomycin 1 GM in Premix Bag 1 BAG IVPB SCH (01:09)
[2020-10-31] MEDS: Acetaminophen 325 MG TAB PO PRN (01:09)
[2020-10-31] MEDS: Sodium Chloride 0.9% 1,000 ML IV SCH ×2 (03:01→18:14)
[2020-10-31] MEDS: Piperacillin/Tazobactam 3.375 GM in Sodium Chloride 0.9% 100 ML IVPB SCH ×3 (04:54→17:10)
[2020-10-31] MEDS: Morphine 2 MG/ML VIAL SLOW IVP PRN (05:15)
[2020-10-31] MEDS ORDERED: Fentanyl 100 MCG/2 ML VIAL ONE ×3 (07:07→09:21)
[2020-10-31] MEDS ORDERED: Lidocaine 1% PF 5 ML VIAL ONE (07:27)
[2020-10-31] MEDS ORDERED: PHENYLEPHRINE-NS 100 MCG/ML 10 ML SYRINGE ONE (07:27)
[2020-10-31] MEDS ORDERED: ePHEDrine Sulfate 50 MG/10 ML VIAL ONE (07:27)
[2020-10-31] MEDS ORDERED: Ondansetron PF 4 MG/2 ML Vial ONE (07:27)
[2020-10-31] MEDS ORDERED: PROPOFOL 200 MG/20 ML VIAL ONE (07:27)
[2020-10-31] MEDS ORDERED: Promethazine HCl 25 MG/ML VIAL SLOW IVP PRN (08:43)
[2020-10-31] MEDS ORDERED: Ondansetron HCl/PF 4 MG/2 ML Vial IVP PRN (08:43)
[2020-10-31] MEDS ORDERED: Promethazine HCl 25 MG/ML VIAL IM PRN (08:43)
[2020-10-31] MEDS ORDERED: hydrALAZINE 20 MG/ML VIAL ONE (09:55)
[2020-10-31] MEDS: Senokot S 8.6-50 MG TAB PO SCH ×2 (10:08→21:11)
[2020-10-31] MEDS: Heparin 5,000 UNITS/ML VIAL SC SCH ×2 (10:08→21:10)
[2020-10-31] MEDS: Lisinopril 2.5 MG TAB PO SCH ×2 (10:08→10:50)
[2020-10-31] MEDS: Famotidine 20 MG TAB PO SCH ×2 (10:08→21:10)
[2020-10-31] MEDS: Aspirin 325 MG TAB PO SCH (10:08)
[2020-10-31] MEDS ORDERED: Fentanyl 100 MCG/2 ML VIAL SLOW IVP PRN (10:28)
[2020-10-31] MEDS ORDERED: traMADol HCl 50 MG TAB PO PRN (10:28)
[2020-10-31] MEDS: Fentanyl 100 MCG/2 ML VIAL SLOW IVP PRN ×3 (12:17→21:11)
[2020-10-31] MEDS: traMADol HCl 50 MG TAB PO PRN (12:18)
[2020-10-31] MEDS: Insulin Regular 300 UNITS/3 ML VIAL SC PRN ×3 (12:50→21:14)
[2020-10-31] MEDS ORDERED: Lisinopril 5 MG TAB PO SCH (15:30)
[2020-10-31] MEDS ORDERED: Amlodipine 10 MG TAB PO SCH (15:30)
[2020-10-31] MEDS: Atorvastatin Calcium 40 MG TAB PO SCH (21:10)
[2020-11-01] MEDS: Fentanyl 100 MCG/2 ML VIAL SLOW IVP PRN ×4 (00:09→19:53)
[2020-11-01] MEDS: Sodium Chloride 0.9% 1,000 ML IV SCH ×2 (00:09→13:45)
[2020-11-01] MEDS: Piperacillin/Tazobactam 3.375 GM in Sodium Chloride 0.9% 100 ML IVPB SCH ×4 (00:09→17:32)
[2020-11-01] MEDS ORDERED: hydrALAZINE 20 MG/ML VIAL SLOW IVP PRN (04:19)
[2020-11-01] MEDS: Insulin Regular 300 UNITS/3 ML VIAL SC PRN ×3 (06:15→21:56)
[2020-11-01] MEDS: Aspirin 325 MG TAB PO SCH (07:41)
[2020-11-01] MEDS: Amlodipine 5 MG TAB PO SCH (07:42)
[2020-11-01] MEDS: Famotidine 20 MG TAB PO SCH ×2 (07:42→21:57)
[2020-11-01] MEDS: Lisinopril 10 MG TAB PO SCH (07:43)
[2020-11-01] MEDS: Heparin 5,000 UNITS/ML VIAL SC SCH ×2 (07:43→21:55)
[2020-11-01] MEDS: Senokot S 8.6-50 MG TAB PO SCH ×2 (07:44→19:24)
[2020-11-01] MEDS: traMADol HCl 50 MG TAB PO PRN ×2 (09:48→21:56)
[2020-11-01] MEDS: Acetaminophen 325 MG TAB PO PRN ×3 (09:49→21:57)
[2020-11-01] MEDS: Atorvastatin Calcium 40 MG TAB PO SCH (21:57)
[2020-11-02] MEDS: Piperacillin/Tazobactam 3.375 GM in Sodium Chloride 0.9% 100 ML IVPB SCH ×4 (00:37→17:34)
[2020-11-02] MEDS: Fentanyl 100 MCG/2 ML VIAL SLOW IVP PRN ×4 (04:06→15:55)
[2020-11-02 05:42] LABS: #Basophils 0.1 thou/uL (0.0-0.2); #Eosinphils 0.2 thou/uL (0.0-0.7); #Monocytes 1.3 thou/uL (0.11-0.59); #Neutrophils 9.2 thou/uL (1.40-6.50); %Basophils 0.6 % (0.0-1.0); %Eosinophils 1.3 % (0.0-10.0); %Lymphocytes 15.7 % (21.0-51.0); %Monocytes 9.9 % (0.0-10.0); %Neutrophils 72.5 % (42.0-75.0); Hemoglobin 10.9 g/dL (14.0-18.0); Mean Corpuscular HGB CONC 33.3 g/dL (32.0-36.0); Mean Corpuscular Hemoglobin 31.8 pg (27.0-31.0); Mean Corpuscular Volume 95.4 fL (78.0-98.0); Mean Platelet Volume 8.1 fL (7.4-10.4); Platelet Count 417 thou/uL (130-400); RBC Distribution Width 12.9 % (11.5-14.5); Red Blood Cell (RBC) Count 3.43 mill/uL (4.70-6.10); White Blood Cell (WBC) Count 12.7 thou/uL (4.8-10.8)
[2020-11-02 06:03] LABS: Anion Gap 12 mmol/L (10-20); BUN (Urea Nitrogen) 6 mg/dL (8.4-25.7); Calc. Creatinine Clearance 83 mL/min (70-130); Calcium 8.8 mg/dL (7.8-10.44); Carbon Dioxide 25 mmol/L (23-31); Chloride 103 mmol/L (98-107); Glucose 191 mg/dL (80-115); Potassium 3.2 mmol/L (3.5-5.1); Sodium 137 mmol/L (136-145)
[2020-11-02] MEDS: Insulin Regular 300 UNITS/3 ML VIAL SC PRN ×3 (06:21→17:34)
[2020-11-02] MEDS: Acetaminophen 325 MG TAB PO PRN ×2 (06:24→17:34)
[2020-11-02] MEDS: Senokot S 8.6-50 MG TAB PO SCH (07:29)
[2020-11-02] MEDS: Heparin 5,000 UNITS/ML VIAL SC SCH (08:52)
[2020-11-02] MEDS: traMADol HCl 50 MG TAB PO PRN (08:52)
[2020-11-02] MEDS: Amlodipine 5 MG TAB PO SCH (08:53)
[2020-11-02] MEDS: Famotidine 20 MG TAB PO SCH (08:53)
[2020-11-02] MEDS: Lisinopril 10 MG TAB PO SCH (08:53)
[2020-11-02] MEDS: Aspirin 325 MG TAB PO SCH (08:54)
[2020-11-02] MEDS: Sodium Chloride 0.9% 1,000 ML IV SCH (11:55)
[2020-11-02] MEDS ORDERED: Tamsulosin HCl 0.4 MG CAP PO SCH (12:30)
[2020-11-02 15:56] VITALS: BP 151/69; TEMP 98.1
== END 2020-11-02 19:15 | disposition swing bed (61) | DRG 240 ==
LOC: ERS 11:16 → SURG A 14:58
PROVIDERS: ADMIT Internal Medicine; ATTEND Internal Medicine
PROC: 0Y6J0Z3 Detachment at Left Lower Leg, Low, Open Approach (ICD-10-PCS; principal; 2020-10-31)
DX: E11.52 Type 2 diabetes mellitus with diabetic peripheral angiopathy with gangrene (principal); T82.898A Other specified complication of vascular prosthetic devices, implants and grafts, initial encounter; M86.8X7 Other osteomyelitis, ankle and foot; R78.81 Bacteremia; G93.49 Other encephalopathy; Y83.2 Surgical operation with anastomosis, bypass or graft as the cause of abnormal reaction of the patient, or of later complication, without mention of misadventure at the time of the procedure; E78.5 Hyperlipidemia, unspecified; I10 Essential (primary) hypertension; E11.69 Type 2 diabetes mellitus with other specified complication; F10.20 Alcohol dependence, uncomplicated; Z20.822 Contact with and (suspected) exposure to COVID-19; D64.9 Anemia, unspecified; F17.210 Nicotine dependence, cigarettes, uncomplicated; Z91.040 Latex allergy status; Z79.84 Long term (current) use of oral hypoglycemic drugs; Z79.01 Long term (current) use of anticoagulants; Z86.718 Personal history of other venous thrombosis and embolism; Z86.73 Personal history of transient ischemic attack (TIA), and cerebral infarction without residual deficits; Z91.14 Patient's other noncompliance with medication regimen; Z71.6 Tobacco abuse counseling
CPT/HCPCS: 36415; 36416; 51702; 70450; 75635; 80048; 80053; 80202; 81003; 81015; 83036; 83605; 83690; 85025; 85610; 85730; 86140; 87040; 87077; 87086; 87149; 87186; 88307; 88311; 93005; 94760; 96365; 96367; 96375; J0360; J1644; J1815; J2250; J2270; J2405; J2543; J2704; J3010; J3370; J3490; Q9967; U0003; U0005

== ENCOUNTER 2021-11-22 15:41 | Emergency (ER) | payer MEDICARE ==
[2021-11-22 16:22] LABS: #Basophils 0.1 thou/uL (0.0-0.2); #Eosinphils 0.3 thou/uL (0.0-0.7); #Lymphocytes 2.5 thou/uL (1.20-3.40); #Monocytes 1.1 thou/uL (0.11-0.59); #Neutrophils 9.4 thou/uL (1.40-6.50); %Basophils 0.7 % (0.0-1.0); %Lymphocytes 18.6 % (21.0-51.0); %Monocytes 8.2 % (0.0-10.0); %Neutrophils 70.6 % (42.0-75.0); Hemoglobin 13.9 g/dL (14.0-18.0); Mean Corpuscular HGB CONC 32.9 g/dL (32.0-36.0); Mean Corpuscular Hemoglobin 32.2 pg (27.0-31.0); Mean Corpuscular Volume 97.6 fL (78.0-98.0); Mean Platelet Volume 9.2 fL (7.4-10.4); Platelet Count 291 thou/uL (130-400); RBC Distribution Width 12.3 % (11.5-14.5); Red Blood Cell (RBC) Count 4.31 mill/uL (4.70-6.10); White Blood Cell (WBC) Count 13.3 thou/uL (4.8-10.8)
[2021-11-22 16:42] LABS: ALT (SGPT) 13 U/L (8-55); AST (SGOT) 9 U/L (5-34); Albumin 4.1 g/dL (3.4-4.8); Alkaline Phosphatase 101 U/L (40-110); Anion Gap 17 mmol/L (10-20); BUN (Urea Nitrogen) 33 mg/dL (8.4-25.7); Bilirubin, Total 0.4 mg/dL (0.2-1.2); Calc. Creatinine Clearance 0 mL/min (70-130); Calcium 9.6 mg/dL (7.8-10.44); Carbon Dioxide 22 mmol/L (23-31); Chloride 101 mmol/L (98-107); Estimated GFR 51; Globulin 3.6 g/dL (2.4-3.5); Glucose 278 mg/dL (80-115); Potassium 5.1 mmol/L (3.5-5.1); Protein, Total 7.7 g/dL (5.8-8.1); Sodium 135 mmol/L (136-145)
[2021-11-22 16:45] LABS: Bilirubin Negative (Negative); Blood, Urine Negative (Negative); Clarity Clear (Clear); Glucose, Urine (Dipstick) 500 mg/dL (Negative); Ketone, Urine Negative (Negative); Leukocyte Negative Leu/uL (Negative); Nitrite Negative (Negative); Protein, Urine (Dipstick) 20 mg/dL (Neg-Trace); Specific Gravity, Urine 1.022 (1.002-1.036); Urobilinogen Normal mg/dL (Less than 2)
[2021-11-22] MEDS ORDERED: Lorazepam 1 MG TAB ONE (18:38)
== END 2021-11-22 20:01 | disposition home or self-care (01) ==
LOC: ERS 15:41
DX: E86.0 Dehydration (principal); R45.1 Restlessness and agitation; E11.9 Type 2 diabetes mellitus without complications; I10 Essential (primary) hypertension; F17.210 Nicotine dependence, cigarettes, uncomplicated
CPT/HCPCS: 36415; 70450; 80053; 81003; 83605; 84484; 85025; 93005

== ENCOUNTER 2021-11-23 18:25 | Emergency (ER) | payer MEDICARE ==
[2021-11-23 19:15] LABS: #Basophils 0.1 thou/uL (0.0-0.2); #Eosinphils 0.2 thou/uL (0.0-0.7); #Lymphocytes 2.8 thou/uL (1.20-3.40); #Monocytes 0.9 thou/uL (0.11-0.59); #Neutrophils 7.6 thou/uL (1.40-6.50); %Basophils 0.5 % (0.0-1.0); %Eosinophils 1.9 % (0.0-10.0); %Lymphocytes 24.3 % (21.0-51.0); %Monocytes 8.1 % (0.0-10.0); %Neutrophils 65.1 % (42.0-75.0); Hemoglobin 13.7 g/dL (14.0-18.0); Mean Corpuscular HGB CONC 33.3 g/dL (32.0-36.0); Mean Corpuscular Hemoglobin 32.7 pg (27.0-31.0); Mean Corpuscular Volume 98.1 fL (78.0-98.0); Mean Platelet Volume 9.5 fL (7.4-10.4); Platelet Count 291 thou/uL (130-400); RBC Distribution Width 12.4 % (11.5-14.5); Red Blood Cell (RBC) Count 4.18 mill/uL (4.70-6.10); White Blood Cell (WBC) Count 11.6 thou/uL (4.8-10.8)
[2021-11-23] MEDS ORDERED: Ziprasidone 20 MG CAP PO SCH (19:15)
[2021-11-23 19:37] LABS: Lipase 36 U/L (8-78); Magnesium 1.6 mg/dL (1.6-2.6)
[2021-11-23 19:41] LABS: ALT (SGPT) 12 U/L (8-55); AST (SGOT) 11 U/L (5-34); Acetaminophen Less than 10.0 mcg/mL (10.0-30.0); Alcohol Less than 10 mg/dL (Less than 10); Alkaline Phosphatase 96 U/L (40-110); Anion Gap 18 mmol/L (10-20); BUN (Urea Nitrogen) 31 mg/dL (8.4-25.7); Bilirubin, Total 0.4 mg/dL (0.2-1.2); Calc. Creatinine Clearance 0 mL/min (70-130); Calcium 9.5 mg/dL (7.8-10.44); Carbon Dioxide 23 mmol/L (23-31); Chloride 101 mmol/L (98-107); Estimated GFR 40; Globulin 4.3 g/dL (2.4-3.5); Glucose 326 mg/dL (80-115); Potassium 4.8 mmol/L (3.5-5.1); Protein, Total 8.3 g/dL (5.8-8.1); Salicylate Less than 8.0 mg/dL (15.0-30.0); Sodium 137 mmol/L (136-145)
[2021-11-23] MEDS ORDERED: Ziprasidone 20 MG CAP ONE (20:16)
== END 2021-11-23 21:10 ==
LOC: ERS 18:25
DX: R45.1 Restlessness and agitation (principal); I10 Essential (primary) hypertension; E11.52 Type 2 diabetes mellitus with diabetic peripheral angiopathy with gangrene; I96 Gangrene, not elsewhere classified; Z86.718 Personal history of other venous thrombosis and embolism; Z86.73 Personal history of transient ischemic attack (TIA), and cerebral infarction without residual deficits; F17.210 Nicotine dependence, cigarettes, uncomplicated; E86.0 Dehydration; E11.9 Type 2 diabetes mellitus without complications
CPT/HCPCS: 36415; 70450; 80053; 80307; 81003; 83605; 83690; 83735; 84443; 84484; 85025; 93005; 99285